=== PATIENT | female | born 1965 | race Caucasian/White ===

== ENCOUNTER 2017-05-17 21:40 | Emergency (ER) | payer OTHER ==
[2017-05-17] MEDS ORDERED: Ondansetron INJ* 2 MG/ML VIAL IV ONE (22:44)
[2017-05-17] MEDS ORDERED: NS 0.9% 1000 ML* 1,000 ML IV ONE (22:44)
[2017-05-17 22:58] LABS: Hematocrit 45 % (35-47); Hemoglobin 15.3 g/dl (12.0-16.0); Mean Corpuscular HGB Conc 34 g/dl (31-36); Mean Corpuscular Hemoglobin 32 pg (27-31); Mean Corpuscular Volume 96 fL (80-97); Mean Platelet Volume 10 um3 (7.4-10.4); Red Blood Count 4.74 10^6/ul (4.0-5.4); Red Cell Distribution Width 13 % (10.5-15); White Blood Count 10.1 10^3/ul (3.5-10.8)
[2017-05-17 23:12] LABS: ALT 20 U/L (7-52); Alkaline Phosphatase 74 U/L (34-104); BUN/Creatinine Ratio 19.6 (8-20); Blood Urea Nitrogen 18 mg/dL (6-24); C Reactive Protein 13.39 mg/L (< 5.00); CO2 Carbon Dioxide 26 mmol/L (22-32); Calcium 8.8 mg/dL (8.6-10.3); Chloride 105 mmol/L (101-111); EGFR African American 81.8 (>60); EGFR Non-African American 63.6 (>60); Globulin 2.7 g/dL (2-4); Glucose 113 mg/dL (70-100); Lipase 19 U/L (11.0-82.0); Sodium 137 mmol/L (133-145); Total Protein 6.7 g/dL (6.4-8.9)
--- NOTE | 2017-05-17 23:44 | ED ---
Chantel Champagne Edward, scribed for Gama Woods MD on 05/17/17 at 2246 . Complex/Multi-Sys Presentation - HPI Summary HPI Summary: 52 y/o female presnts to ED c/o hematemesis at around 13:00 this afternoon. The patient was resting when it occurred. She felt fine before the incident as well. The patient threw up once, but blood kept coming to her throat after the episode. Associated sx: nausea and ABD pain characterized as an ache now. Pt is not on blood thinners. - History Of Current Complaint Chief Complaint: EDNauseaVomitDiarrh Time Seen by Provider: 05/17/17 22:40 Hx Obtained From: Patient Onset/Duration: Sudden Onset Associated Signs And Symptoms: Positive: Nausea, Vomiting - hematemesis, Abdominal Pain - stomach ache - Allergies/Home Medications Allergies/Adverse Reactions: Allergies Allergy/AdvReac Type Severity Reaction Status Date / Time No Known Allergies Allergy Verified 07/29/12 17:53 PMH/Surg Hx/FS Hx/Imm Hx Previously Healthy: No Endocrine/Hematology History: Denies: Hx Diabetes, Hx Thyroid Disease Cardiovascular History: Denies: Hx Hypertension, Hx Pacemaker/ICD Respiratory History: Reports: Hx Asthma Denies: Hx Chronic Obstructive Pulmonary Disease (COPD) History: Denies: Hx Renal Disease Musculoskeletal History: Denies: Hx Rheumatoid Arthritis, Hx Osteoporosis Sensory History: Denies: Hx Hearing Aid Neurological History: Denies: Hx Dementia, Hx Seizures Psychiatric History: Denies: Hx Panic Disorder, Hx Substance Abuse - Cancer History Cancer Type, Location and Year: cervical ca - Surgical History Surgery Procedure, Year, and Place: hysterectomy, tubal,wisdom teeth extraction , appy - Immunization History Date of Tetanus Vaccine: n Date of Influenza Vaccine: ukn Infectious Disease History: No Infectious Disease History: Denies: Hx Hepatitis, Hx Human Immunodeficiency Virus (HIV), Traveled Outside the [place] in Last 30 Days - Family History Known Family History: Positive: Diabetes - Grandmother - Social History Alcohol Use: Occasionally Substance Use Type: Reports: None Hx Tobacco Use: Yes Smoking Status (MU): Current Every Day Smoker Type: Cigarettes Amount Used/How Often: 5 cigarettes per day Have You Smoked in the Last Year: Yes Review of Systems Constitutional: Negative Eyes: Negative ENT: Negative Cardiovascular: Negative Respiratory: Negative Positive: Abdominal Pain - stomach ache, Vomiting - hematemesis, Nausea Genitourinary: Negative Musculoskeletal: Negative Skin: Negative Neurological: Negative Psychological: Normal All Other Systems Reviewed And Are Negative: Yes Physical Exam Triage Information Reviewed: Yes Vital Signs On Initial Exam: Initial Vitals Temp Pulse Resp BP Pulse Ox 97.6 F 83 16 159/93 96 05/17/17 21:44 05/17/17 21:44 05/17/17 21:44 05/17/17 21:44 05/17/17 21:44 Vital Signs Reviewed: Yes Appearance: Positive: Well-Appearing, No Pain Distress Skin: Positive: Warm Head/Face: Positive: Normal Head/Face Inspection Eyes: Positive: ARUNA ENT: Positive: Hearing grossly normal Neck: Positive: Supple Respiratory/Lung Sounds: Positive: Breath Sounds Present Cardiovascular: Positive: RRR Abdomen Description: Positive: Nontender, No Organomegaly, Soft Bowel Sounds: Positive: Present Musculoskeletal: Positive: Strength/ROM Intact Neurological: Positive: Alert, Oriented to Person Place, Time Psychiatric: Positive: Affect/Mood Appropriate - Briggs Coma Scale Coma Scale Total: 15 Diagnostics - Vital Signs Vital Signs Temp Pulse Resp BP Pulse Ox 05/17/17 21:44 97.6 F 83 16 159/93 96 - Laboratory Lab Results: Lab Results 05/17/17 05/17/17 05/17/17 Range/Units 22:36 22:36 22:36 WBC 10.1 (3.5-10.8) 10^3/ul RBC 4.74 (4.0-5.4) 10^6/ul Hgb 15.3 (12.0-16.0) g/dl Hct 45 (35-47) % MCV 96 (80-97) fL MCH 32 H (27-31) pg MCHC 34 (31-36) g/dl RDW 13 (10.5-15) % Plt Count 240 (150-450) 10^3/ul MPV 10 (7.4-10.4) um3 Neut % (Auto) 55.5 (38-83) % Lymph % (Auto) 30.6 (25-47) % [place] % (Auto) 8.3 (1-9) % Eos % (Auto) 5.4 (0-6) % Baso % (Auto) 0.2 (0-2) % Absolute Neuts (auto) 5.6 (1.5-7.7) 10^3/ul Absolute Lymphs (auto) 3.1 (1.0-4.8) 10^3/ul Absolute Monos (auto) 0.8 (0-0.8) 10^3/ul Absolute Eos (auto) 0.5 (0-0.6) 10^3/ul Absolute Basos (auto) 0 (0-0.2) 10^3/ul Absolute Nucleated RBC 0 10^3/ul Nucleated RBC % 0 INR (Anticoag Therapy) (0.89-1.11) Sodium 137 (133-145) mmol/L Potassium Pending Chloride 105 (101-111) mmol/L Carbon Dioxide 26 (22-32) mmol/L Anion Gap Pending BUN 18 (6-24) mg/dL Creatinine 0.92 (0.51-0.95) mg/dL Est GFR ( Amer) 81.8 (>60) Est GFR (Non-Af Amer) 63.6 (>60) BUN/Creatinine Ratio 19.6 (8-20) Glucose 113 H (70-100) mg/dL Lactic Acid 1.8 (0.5-2.0) mmol/L Calcium 8.8 (8.6-10.3) mg/dL Magnesium Pending Total Bilirubin 0.40 (0.2-1.0) mg/dL AST Pending ALT 20 (7-52) U/L Alkaline Phosphatase 74 (34-104) U/L C-Reactive Protein 13.39 H (< 5.00) mg/L Total Protein 6.7 (6.4-8.9) g/dL Albumin 4.0 (3.2-5.2) g/dL Globulin 2.7 (2-4) g/dL Albumin/Globulin Ratio 1.5 (1-3) Lipase 19 (11.0-82.0) U/L Beta HCG, Quant 1.38 mIU/mL 05/17/17 Range/Units 22:36 WBC (3.5-10.8) 10^3/ul RBC (4.0-5.4) 10^6/ul Hgb (12.0-16.0) g/dl Hct (35-47) % MCV (80-97) fL MCH (27-31) pg MCHC (31-36) g/dl RDW (10.5-15) % Plt Count (150-450) 10^3/ul MPV (7.4-10.4) um3 Neut % (Auto) (38-83) % Lymph % (Auto) (25-47) % [place] % (Auto) (1-9) % Eos % (Auto) (0-6) % Baso % (Auto) (0-2) % Absolute Neuts (auto) (1.5-7.7) 10^3/ul Absolute Lymphs (auto) (1.0-4.8) 10^3/ul Absolute Monos (auto) (0-0.8) 10^3/ul Absolute Eos (auto) (0-0.6) 10^3/ul Absolute Basos (auto) (0-0.2) 10^3/ul Absolute Nucleated RBC 10^3/ul Nucleated RBC % INR (Anticoag Therapy) 0.80 L (0.89-1.11) Sodium (133-145) mmol/L Potassium Chloride (101-111) mmol/L Carbon Dioxide (22-32) mmol/L Anion Gap BUN (6-24) mg/dL Creatinine (0.51-0.95) mg/dL Est GFR ( Amer) (>60) Est GFR (Non-Af Amer) (>60) BUN/Creatinine Ratio (8-20) Glucose (70-100) mg/dL Lactic Acid (0.5-2.0) mmol/L Calcium (8.6-10.3) mg/dL Magnesium Total Bilirubin (0.2-1.0) mg/dL AST ALT (7-52) U/L Alkaline Phosphatase (34-104) U/L C-Reactive Protein (< 5.00) mg/L Total Protein (6.4-8.9) g/dL Albumin (3.2-5.2) g/dL Globulin (2-4) g/dL Albumin/Globulin Ratio (1-3) Lipase (11.0-82.0) U/L Beta HCG, Quant mIU/mL Result Diagrams: 05/17/17 22:36 05/17/17 22:36 Lab Statement: Any lab studies that have been ordered have been reviewed, and results considered in the medical decision making process. Re-Evaluation - Re-Evaluation First Eval Change: Improved - no further nausea, vomit, results d/w pt Complex Multi-Symp Course/Dx Assessment/Plan: 52 y/o female presnts to ED c/o hematemesis at around 13:00 this afternoon. The patient was resting when it occurred. She felt fine before the incident as well. The patient threw up once, but blood kept coming to her throat after the episode. Associated sx: nausea and ABD pain characterized as an ache now. Pt is not on blood thinners. In the ED course the patient was given Zofran. Pt will be discharged home with f/u with Dr. Mulligan (Gastro). - Diagnoses Provider Diagnoses: Vomiting Discharge - Discharge Plan Condition: Stable Disposition: HOME Patient Education Materials: Diet for Stomach Ulcers and Gastritis (ED), Acute Nausea and Vomiting (ED) Referrals: Estevan Mulligan MD [Medical Doctor] - 3 Days (Please follow up in 2-3 days) The documentation as recorded by the Chantel hunter Edward accurately reflects the service I personally performed and the decisions made by , Gama Woods MD.
[2017-05-17 23:50] LABS: Anion Gap 6 mmol/L (2-11)
[2017-05-18 00:01] VITALS: BP 126/73
== END 2017-05-18 00:15 | disposition home or self-care (01) ==
LOC: ED 21:40
DX: R11.2 Nausea with vomiting, unspecified (principal); K92.0 Hematemesis; R10.9 Unspecified abdominal pain; F17.210 Nicotine dependence, cigarettes, uncomplicated
CPT/HCPCS: 36415; 80053; 83605; 83690; 84702; 85025; 85610; 86140; 96374; 99284; J2405

== ENCOUNTER 2018-01-15 20:02 | Emergency (ER) | payer SELFPAY ==
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
[2018-01-15 21:48] LABS: ABS Basophils 0.1 10^3/ul (0-0.2); ABS Eosinophils 0.3 10^3/ul (0-0.6); ABS Lymphocytes 2.4 10^3/ul (1.0-4.8); ABS Monocytes 0.7 10^3/ul (0-0.8); ABS Neutrophils 5.5 10^3/ul (1.5-7.7); ABS Nucleated RBC 0 10^3/ul; Eosinophil % 3.4 % (0-6); Hematocrit 43 % (35-47); Hemoglobin 14.7 g/dl (12.0-16.0); Lymphocyte % 26.8 % (25-47); Mean Corpuscular HGB Conc 35 g/dl (31-36); Mean Corpuscular Hemoglobin 32 pg (27-31); Mean Corpuscular Volume 91 fL (80-97); Mean Platelet Volume 8.9 um3 (7.4-10.4); Nucleated Red Blood Cells % 0.1; Platelet Count 249 10^3/ul (150-450); Red Blood Count 4.67 10^6/ul (4.0-5.4); Red Cell Distribution Width 13 % (10.5-15)
[2018-01-15 22:04] LABS: EGFR Non-African American 71.6 (>60)
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
[2018-01-15] MEDS ORDERED: Iohexol 300* (CONTRAST) 10 ML SDV IV ONE (22:59)
[2018-01-15 23:47] VITALS: BP 157/86
[2018-01-15] MEDS ORDERED: Ketorolac INJ* 30 MG/ML 1 ML VIAL IV PUSH ONE (23:50)
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
== END 2018-01-16 00:44 | disposition home or self-care (01) ==
LOC: ED 20:02
DX: Z04.1 Encounter for examination and observation following transport accident (principal); M25.562 Pain in left knee; M25.522 Pain in left elbow; F17.210 Nicotine dependence, cigarettes, uncomplicated
CPT/HCPCS: 36415; 74177; 80053; 85025; 96374; 99283; J1885; Q9967

== ENCOUNTER 2018-01-16 17:33 | Emergency (ER) | payer MEDICAID, OTHER ==
[2018-01-16] MEDS ORDERED: Albuterol/Ipratropium NEB.SOL* Albuterol 2.5 MG/Ipratropium 0.5 MG 3 ML ONE (17:39)
[2018-01-16] MEDS ORDERED: Albuterol/Ipratropium NEB.SOL* Albuterol 2.5 MG/Ipratropium 0.5 MG 3 ML INH ONE (17:40)
[2018-01-16] MEDS ORDERED: diPHENhydraMINE IV* 50 MG/ML 1 ml VIAL (BENADRYL) IV ONE (17:40)
[2018-01-16] MEDS ORDERED: methylPREDNISolone 125 MG* 2 ML VIAL IV ONE (17:40)
[2018-01-16 18:28] LABS: ABS Basophils 0.1 10^3/ul (0-0.2); ABS Eosinophils 0.4 10^3/ul (0-0.6); ABS Lymphocytes 1.7 10^3/ul (1.0-4.8); ABS Monocytes 0.5 10^3/ul (0-0.8); ABS Neutrophils 5.3 10^3/ul (1.5-7.7); ABS Nucleated RBC 0 10^3/ul; Eosinophil % 4.4 % (0-6); Hematocrit 44 % (35-47); Hemoglobin 14.9 g/dl (12.0-16.0); Lymphocyte % 20.8 % (25-47); Mean Corpuscular HGB Conc 34 g/dl (31-36); Mean Corpuscular Hemoglobin 31 pg (27-31); Mean Corpuscular Volume 93 fL (80-97); Mean Platelet Volume 9.8 um3 (7.4-10.4); Nucleated Red Blood Cells % 0; Platelet Count 259 10^3/ul (150-450); Red Blood Count 4.74 10^6/ul (4.0-5.4); Red Cell Distribution Width 14 % (10.5-15)
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
[2018-01-16 18:44] LABS: EGFR Non-African American 54.6 (>60)
[2018-01-16 20:16] VITALS: BP 144/78
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
== END 2018-01-16 20:15 | disposition home or self-care (01) ==
LOC: ED 17:33
DX: T78.40XA Allergy, unspecified, initial encounter (principal); X58.XXXA Exposure to other specified factors, initial encounter; J45.901 Unspecified asthma with (acute) exacerbation; F17.210 Nicotine dependence, cigarettes, uncomplicated
CPT/HCPCS: 36415; 71045; 80053; 83605; 83880; 84484; 85025; 85379; 93005; 94640; 96374; 96375; 99284; A9270-GY; J1200; J2930

== ENCOUNTER 2018-03-31 09:34 | Emergency (ER) | payer BC, OTHER ==
[2018-03-31 10:06] VITALS: BP 167/89
--- NOTE | 2018-03-31 11:06 | UC ---
Skin Complaint HPI - HPI Summary HPI Summary: has a bump,which she believes is a tick bite, on the left side of her labia majora--she believes it may be a Tick - History of Current Complaint Chief Complaint: UCSkin Time Seen by Provider: 03/31/18 10:56 Stated Complaint: TICK BITE PRIVATE AREA Hx Obtained From: Patient Hx Last Menstrual Period: 3 yrs ago, hysterectomy ?: No Onset/Duration: Sudden Onset Pain Intensity: 0 Pain Scale Used: 0-10 Numeric Location: Discrete Aggravating Factor(s): Nothing Alleviating Factor(s): Nothing Associated Signs & Symptoms: Positive: Negative Related History: Possible Reaction to: Insect - patient is concerned it is a Tick - Allergy/Home Medications Allergies/Adverse Reactions: Allergies Allergy/AdvReac Type Severity Reaction Status Date / Time No Known Allergies Allergy Verified 03/31/18 09:59 Home Medications: Home Medications Fexofenadine (NF) [Kim 180 (NF)] 1 tab PO DAILY 03/31/18 [History Confirmed 03/31/18] Fluticasone NASAL SPRAY 50MCG* [Flonase NASAL SPRAY 50MCG*] 1 spray NASAL DAILY 03/31/18 [History Confirmed 03/31/18] Fluticasone/Vilanterol MDI(NF) [Breo Ellipta MDI 100/25(NF)] 1 puff INH DAILY [History Confirmed 03/31/18] Review of Systems Constitutional: Negative Skin: Negative, Other - Possible tick on left labia Eyes: Negative ENT: Negative Respiratory: Negative Cardiovascular: Negative Gastrointestinal: Negative Genitourinary: Negative Motor: Negative Neurovascular: Negative Musculoskeletal: Negative Neurological: Negative Psychological: Negative Is Patient Immunocompromised?: No All Other Systems Reviewed And Are Negative: Yes PMH/Surg Hx/FS Hx/Imm Hx Previously Healthy: Yes - enviromental allergies - Surgical History Surgical History: Yes Surgery Procedure, Year, and Place: hysterectomy, tubal,wisdom teeth extraction , appy - Family History Known Family History: Positive: Diabetes - Grandmother - Social History Occupation: Employed Full-time Lives: With Family Alcohol Use: Occasionally Substance Use Type: None Smoking Status (MU): Heavy Every Day Tobacco Smoker Type: Cigarettes Amount Used/How Often: 1/2ppd Have You Smoked in the Last Year: Yes Physical Exam Triage Information Reviewed: Yes Appearance: Well-Appearing, No Pain Distress, Well-Nourished Vital Signs: Initial Vital Signs Temp 99.0 F 03/31/18 10:01 Pulse 57 03/31/18 10:01 Resp 18 03/31/18 10:01 BP 167/89 03/31/18 10:01 Pulse Ox 96 03/31/18 10:01 Vital Signs Reviewed: Yes Eye Exam: Normal Eyes: Positive: Conjunctiva Clear ENT Exam: Normal ENT: Positive: Normal ENT inspection, Hearing grossly normal. Negative: Nasal congestion, Trismus, Muffled voice, Hoarse voice Dental Exam: Normal Neck exam: Normal Neck: Positive: Supple, Nontender, No Lymphadenopathy Respiratory Exam: Normal Respiratory: Positive: Chest non-tender, Lungs clear, Normal breath sounds, No respiratory distress, No accessory muscle use Cardiovascular Exam: Normal Cardiovascular: Positive: RRR, No Murmur, Pulses Normal, Brisk Capillary Refill Musculoskeletal Exam: Normal Musculoskeletal: Positive: Strength Intact, ROM Intact, No Edema Neurological Exam: Normal Neurological: Positive: Alert, Muscle Tone Normal Psychological Exam: Normal Psychological: Positive: Normal Response To Family, Age Appropriate Behavior Skin: Positive: Other - what patient believes to be a tick is actually a mole Course/Dx - Course Course Of Treatment: follow mole and blood pressure with pcp in the next week - Diagnoses Provider Diagnoses: mole left labia, elevated blood pressure without diagnosis of hypertension Discharge - Sign-Out/Discharge Documenting (check all that apply): Discharge/Admit/Transfer - Discharge Plan Condition: Stable Disposition: HOME Patient Education Materials: Hypertension (ED), Atypical Mole (ED) Referrals: Benjie Rehman MD [Primary Care Provider] - 1 Week - Billing Disposition and Condition Condition: STABLE Disposition: Home
== END 2018-03-31 11:12 | disposition home or self-care (01) ==
LOC: UCEAST 09:34
DX: D28.0 Benign neoplasm of vulva (principal); R03.0 Elevated blood-pressure reading, without diagnosis of hypertension; Z90.710 Acquired absence of both cervix and uterus; Z83.3 Family history of diabetes mellitus; F17.210 Nicotine dependence, cigarettes, uncomplicated
CPT/HCPCS: 99211; G0463